=== PATIENT | male | born 1995 | race Caucasian/White ===

== ENCOUNTER 2020-04-15 10:58 | Outpatient (CLI) | payer OTHER, SELFPAY ==
--- NOTE | 2020-04-15 11:46 | PC.NURSE ---
5 minutes after receiving first pfizer covid vaccine, patient stated he did not feel well, said his tongue felt swollen and he was clammy, took patient to room one and had him lay down he said his whole mouth felt numb, patient able to talk, initial vitals 139/71, respirations 20, pulse 91, temperature 98.6, 99% on room air, no obvious tongue deformity patient was sweating and verbalized that he is very anxious but 'doesn't feel right', as precaution called 911, gave report to kori at [facility], called his mother Bobbi at [phone] per patient request.
== END 2020-04-15 10:59 | disposition home or self-care (01) ==
LOC: ANHCOVIDVC 10:58
PROVIDERS: PCP Emergency Medicine
DX: Z23 Encounter for immunization (principal)
CPT/HCPCS: 0001A; 91300

== ENCOUNTER 2020-04-15 11:48 | Emergency (ER) | payer BC, SELFPAY ==
[2020-04-15 12:02] VITALS: BP 134/89; PULSE 78; RESP 18; TEMP 36.4; O2SAT 100
[2020-04-15] MEDS: methylPREDNISolone SOD SUCC 40 MG VIAL 60 MG IV PUSH (12:55)
[2020-04-15] MEDS: FAMOTIDINE 20 MG TABLET 40 MG PO (12:55)
[2020-04-15 12:57] VITALS: BP 141/90; PULSE 72; RESP 10; O2SAT 100
--- NOTE | 2020-04-15 12:57 | ED.ALLEREA ---
HPI - Allergic Reaction General Chief complaint: Allergic Reaction Stated complaint: MEDICATION REACTION Time Seen by Provider: 04/15/20 12:10 Source: patient Mode of arrival: ambulatory Limitations: no limitations History of Present Illness HPI narrative: Patient is a 24-year-old male complaining of allergic reaction after receiving the Pfizer vaccine, described as chest burning and mild shortness of breath that started right after receiving a Covid vaccine. Patient states that he was given Benadryl right after and symptoms resolved. Patient currently has no complaints at this time. Denies any facial swelling, tongue, lip or throat swelling. Denies dysphagia. Denies rash. Related Data Allergies Allergy/AdvReac Type Severity Reaction Status Date / Time No Known Allergies Allergy Verified 04/15/20 12:06 Review of Systems Review of Systems: All systems reviewed & are unremarkable except as noted in HPI and below PMFSH Social History Social History Gender identity (if verbalized by the patient): Male Comments Past medical history: None Family history: Noncontributory Social history non-smoker no EtOH or drug use Exam Const: General: cooperative, healthy appearing, comfortable, no acute distress, well developed, alert and awake; No confusion Orientation/consciousness: oriented to person, oriented to place, oriented to time, patient oriented x3 and No confusion Limitations: no limitations HENMT: Head: normal to inspection, normocephalic and atraumatic Ears: hearing grossly normal bilaterally, TM normal on the right and TM normal on the left General nose exam: Normal external nose present, Normal nares present and No nasal discharge present Face and sinus: normal facial exam Mouth: Yes Normal oral and palatal mucosa present, Yes lip normal, Yes tongue normal and Yes oropharynx normal Throat: posterior oropharynx normal, tonsils normal and uvula midline Other: Clear oropharyngeal area no swelling or edema noted Eyes: General: appearance normal, both eyes and all related structures Pupils: Equal, round and reactive pupils present EOM: EOMs intact bilaterally Neck: Neck: normal visual inspection, full ROM, no lymphadenopathy and no meningeal signs Chest: Chest palpation & inspection: normal inspection of the chest Resp: Effort & Inspection: normal respiratory effort, able to speak in complete sentences, no respiratory distress and not tachypneic Auscultation: clear to auscultation bilaterally, no crackles, no rales, no rhonchi and no wheezes Cardio: Rate: regular rate Rhythm: regular rhythm GI: Inspection: normal to inspection GI Palp: No abdominal tenderness, Yes Soft to palpation, No Tenderness to palpation present (GI), No Guarding due to palpation present (GI), No Rigid due to palpation and No Rebound tenderness present Auscultation: normal bowel sounds : General: Yes no CVA tenderness Back/Spine/Pelvis: Back: no CVA tenderness Skin: General skin exam: normal color, no rashes or lesions noted, elasticity normal and turgor normal Neuro: General: oriented to person, oriented to place, oriented to time, patient oriented x3, tone normal, moves all extremities, Normal light touch and pain sensation, no meningeal signs, no focal motor deficits, CN's II-XI intact bilaterally and No confusion Cranial nerves: Yes Equal, round and reactive pupils present Speech: No Abnormal speech present Sensory Exam: No Sensory deficit (Neuro) Extrem: General: normal to inspection, full ROM and capillary refill normal Psych: Appearance: grossly normal and well kempt Mental Status: mental status grossly normal Speech and movement: Normal speech and movement present Affect: normal affect Attitude: cooperative Thought process: Normal thought process present Thought content: Yes Normal thought content present Insight: Good insight present (Psych) Judgement: Good judgement present (Psych) Course Course Emergency Course:
[2020-04-15 13:28] VITALS: BP 138/72; PULSE 78; RESP 18; O2SAT 99
== END 2020-04-15 13:29 | disposition home or self-care (01) ==
PROVIDERS: Emergency Provider Emergency Medicine
DX: T78.40XA Allergy, unspecified, initial encounter (principal)
CPT/HCPCS: 96374; 99284; A9270; J2920